=== PATIENT | male | born 1965 | race Caucasian/White ===

== ENCOUNTER 2016-11-11 07:34 | Outpatient (CLI) | payer BC ==
[2016-11-11 11:10] LABS: BASOPHILS % (AUTO) 0.2 %; EOSINOPHILS # (AUTO) 0.1 10^3/uL (0.0-0.7); EOSINOPHILS % (AUTO) 2.3 %; HCT - HEMATOCRIT 46.1 % (42.0-52.0); HGB - HEMOGLOBIN 16.2 g/dL (14.0-18.0); LYMPHOCYTES # (AUTO) 1.9 10^3/uL (1.5-3.5); LYMPHOCYTES % (AUTO) 35.8 %; MEAN CORPUSCULAR HEMOGLOBIN 28.7 pg (27.0-31.0); MEAN CORPUSCULAR VOLUME 81.8 fL (80.0-94.0); MEAN PLATELET VOLUME 8.4 fL (7.4-11.4); MONOCYTES # (AUTO) 0.5 10^3/uL (0.0-1.0); MONOCYTES % (AUTO) 9.4 %; NEUTROPHILS # (AUTO) 2.8 10^3/uL (1.5-6.6); NEUTROPHILS % (AUTO) 52.3 %; NUCLEATED RED BLOOD CELLS AUTO 0.1 /100WBC; RED BLOOD COUNT 5.64 10^6/uL (4.70-6.10); RED CELL DISTRIBUTION WIDTH 13.9 % (12.0-15.0); UNCORRECTED WHITE BLOOD COUNT 5.3 x10^3/uL; WHITE BLOOD COUNT 5.3 x10^3/uL (4.8-10.8)
[2016-11-11 11:25] LABS: ALBUMIN/GLOBULIN RATIO 1.5 (1.0-2.2); BILIRUBIN,TOTAL 0.8 mg/dL (0.2-1.0); BUN - BLOOD UREA NITROGEN 18 mg/dL (6-20); CALCIUM 9.5 mg/dL (8.5-10.3); CARBON DIOXIDE - CO2 25 mmol/L (21-32); CHLORIDE 108 mmol/L (101-111); CHOL/HDL RATIO 6.3 (<5.0); CHOLESTEROL 207 mg/dL; CREATININE 0.9 mg/dL (0.6-1.2); GFR - MDRD 90 (>89); GLUCOSE 99 mg/dL (70-100); HDL CHOLESTEROL 33 mg/dL; LDL/HDL RATIO 4.2 (<3.6); POTASSIUM 4.5 mmol/L (3.5-5.0); SODIUM 140 mmol/L (135-145); TOTAL PROTEIN 7.7 g/dL (6.7-8.2); TRIGLYCERIDES 186 mg/dL; VLDL CHOLESTEROL 37 mg/dL
== END 2016-11-11 07:35 | disposition home or self-care (01) ==
LOC: LAB.F 07:34
PROVIDERS: ATTEND Nurse Practitioner Family
DX: I10 Essential (primary) hypertension (principal); E78.5 Hyperlipidemia, unspecified
CPT/HCPCS: 36415; 80053; 80061; 84443; 85025

== ENCOUNTER 2018-02-17 08:29 | Outpatient (CLI) | payer BC ==
[2018-02-17 11:05] LABS: BASOPHILS % (AUTO) 0.3 %; EOSINOPHILS # (AUTO) 0.1 10^3/uL (0.0-0.7); EOSINOPHILS % (AUTO) 2.1 %; HGB - HEMOGLOBIN 16.2 g/dL (14.0-18.0); LYMPHOCYTES # (AUTO) 1.7 10^3/uL (1.5-3.5); LYMPHOCYTES % (AUTO) 34.5 %; MEAN CORPUSCULAR HEMOGLOBIN 29.1 pg (27.0-31.0); MEAN CORPUSCULAR HGB CONC 34.5 g/dL (32.0-36.0); MEAN CORPUSCULAR VOLUME 84.2 fL (80.0-94.0); MEAN PLATELET VOLUME 8.1 fL (7.4-11.4); MONOCYTES # (AUTO) 0.5 10^3/uL (0.0-1.0); NEUTROPHILS # (AUTO) 2.7 10^3/uL (1.5-6.6); NEUTROPHILS % (AUTO) 53.1 %; PLT - PLATELET COUNT 173 10^3/uL (130-450); RED BLOOD COUNT 5.58 10^6/uL (4.70-6.10); RED CELL DISTRIBUTION WIDTH 13.9 % (12.0-15.0)
[2018-02-17 11:27] LABS: ALBUMIN 4.6 g/dL (3.2-5.5); ALBUMIN/GLOBULIN RATIO 1.5 (1.0-2.2); ALKALINE PHOSPHATASE 57 IU/L (42-121); ALT ALANINE AMINOTRANSFERASE 48 IU/L (10-60); AST ASPARTATE AMINOTRANSFERASE 35 IU/L (10-42); BILIRUBIN,TOTAL 1.1 mg/dL (0.2-1.0); BUN - BLOOD UREA NITROGEN 18 mg/dL (6-20); CALCIUM 9.4 mg/dL (8.5-10.3); CARBON DIOXIDE - CO2 26 mmol/L (21-32); CHLORIDE 107 mmol/L (101-111); CHOL/HDL RATIO 4.8 (<5.0); CHOLESTEROL 187 mg/dL; GFR - MDRD 79 (>89); GLUCOSE 98 mg/dL (70-100); HDL CHOLESTEROL 39 mg/dL; LDL CHOLESTEROL,CALCULATED 120 mg/dL; LDL/HDL RATIO 3.1 (<3.6); SODIUM 139 mmol/L (135-145); TOTAL PROTEIN 7.7 g/dL (6.7-8.2); VLDL CHOLESTEROL 28 mg/dL
== END 2018-02-17 08:30 | disposition home or self-care (01) ==
LOC: LAB.F 08:29
PROVIDERS: ATTEND Nurse Practitioner Family
DX: I10 Essential (primary) hypertension (principal); E78.5 Hyperlipidemia, unspecified
CPT/HCPCS: 36415; 80053; 80061; 83721; 84443; 85025

== ENCOUNTER 2018-09-09 10:50 | Outpatient (CLI) | payer SELFPAY | END 2018-09-09 10:51 | disposition home or self-care (01) | LOC: LAB 10:50 | PROVIDERS: ATTEND Nurse Practitioner Family | DX: Z02.9 Encounter for administrative examinations, unspecified (principal) | CPT/HCPCS: 36415 ==

== ENCOUNTER 2019-02-06 07:04 | Outpatient (CLI) | payer BC ==
--- NOTE | 2019-02-06 09:07 | Ultrasound Report ---
Reason: LIVER FUNCTION TESTS ABNORMAL Procedure Date: 02/06/2019 Accession Number: [id number] / [id number] Procedure: US - Abdomen Limited CPT Code: FULL RESULT: EXAM: ABDOMEN ULTRASOUND LIMITED, RUQ EXAM DATE: 02/06/2019 07:55 AM. CLINICAL HISTORY: LIVER FUNCTION TESTS ABNORMAL. COMPARISON: None. TECHNIQUE: Real-time scanning was performed with static images obtained. FINDINGS: Liver: Echogenic hepatic parenchyma. No hepatic lesions. No intrahepatic ductal dilatation. Liver is not enlarged, 15 cm. Main portal vein flow: Hepatopetal. Gallbladder: Multiple stones completely occupy the entire gallbladder. No sonographic Manzano's sign. Gallbladder wall appears thickened. Biliary System: CBD measures 6-7 mm. No intrahepatic or extrahepatic ductal dilatation. Other: Right kidney is lobular in contour and normal in echotexture and measures 11.6 cm. No hydronephrosis. IMPRESSION: 1. Hepatic steatosis. 2. Cholelithiasis. Gallbladder wall thickening. No sonographic Manzano's sign. 3. No biliary ductal dilatation. RADIA
== END 2019-02-06 07:05 | disposition home or self-care (01) ==
LOC: DI 07:04
PROVIDERS: ATTEND Internal Medicine
DX: K76.0 Fatty (change of) liver, not elsewhere classified (principal); K80.20 Calculus of gallbladder without cholecystitis without obstruction
CPT/HCPCS: 76705

== ENCOUNTER 2019-11-29 07:41 | Outpatient (CLI) | payer BC ==
[2019-11-29 15:24] LABS: BASOPHILS % (AUTO) 0.2 %; EOSINOPHILS # (AUTO) 0.1 10^3/uL (0.0-0.7); EOSINOPHILS % (AUTO) 1.8 %; HGB - HEMOGLOBIN 16.5 g/dL (14.0-18.0); LYMPHOCYTES # (AUTO) 1.7 10^3/uL (1.5-3.5); LYMPHOCYTES % (AUTO) 34.8 %; MEAN CORPUSCULAR HEMOGLOBIN 28.5 pg (27.0-31.0); MEAN CORPUSCULAR HGB CONC 33.6 g/dL (32.0-36.0); MEAN CORPUSCULAR VOLUME 84.9 fL (80.0-94.0); MEAN PLATELET VOLUME 10.1 fL (7.4-11.4); MONOCYTES # (AUTO) 0.4 10^3/uL (0.0-1.0); MONOCYTES % (AUTO) 8.4 %; NEUTROPHILS # (AUTO) 2.7 10^3/uL (1.5-6.6); NEUTROPHILS % (AUTO) 54.6 %; PLT - PLATELET COUNT 185 10^3/uL (130-450); RED BLOOD COUNT 5.78 10^6/uL (4.70-6.10); WHITE BLOOD COUNT 4.9 x10^3/uL (4.8-10.8)
[2019-11-29 15:32] LABS: ALBUMIN/GLOBULIN RATIO 1.1 (1.0-2.2); ALKALINE PHOSPHATASE 60 IU/L (42-121); ALT ALANINE AMINOTRANSFERASE 55 IU/L (10-60); AST ASPARTATE AMINOTRANSFERASE 40 IU/L (10-42); BILIRUBIN,TOTAL 0.9 mg/dL (0.2-1.0); BUN - BLOOD UREA NITROGEN 19 mg/dL (6-20); CALCIUM 9.1 mg/dL (8.5-10.3); CARBON DIOXIDE - CO2 26 mmol/L (21-32); CHLORIDE 102 mmol/L (101-111); CHOL/HDL RATIO 5.1 (<5.0); CHOLESTEROL 183 mg/dL; CREATININE 0.9 mg/dL (0.6-1.2); GLUCOSE 99 mg/dL (70-100); HDL CHOLESTEROL 36 mg/dL; LDL CHOLESTEROL,CALCULATED 94 mg/dL; LDL/HDL RATIO 2.6 (<3.6); SODIUM 135 mmol/L (135-145); TOTAL PROTEIN 7.7 g/dL (6.7-8.2); VLDL CHOLESTEROL 53 mg/dL
== END 2019-11-29 07:42 | disposition home or self-care (01) ==
LOC: LAB.S 07:41
PROVIDERS: ATTEND Nurse Practitioner Family
DX: Z00.00 Encounter for general adult medical examination without abnormal findings (principal); E55.9 Vitamin D deficiency, unspecified; E78.5 Hyperlipidemia, unspecified
CPT/HCPCS: 36415; 80053; 80061; 82306; 82728; 83721; 84153; 85025

== ENCOUNTER 2020-01-03 13:06 | Outpatient (CLI) | payer BC | END 2020-01-03 13:07 | disposition home or self-care (01) | LOC: LAB 13:06 | PROVIDERS: ATTEND Nurse Practitioner Family | DX: B34.9 Viral infection, unspecified (principal); Z20.828 Contact with and (suspected) exposure to other viral communicable diseases | CPT/HCPCS: 81599 ==

== ENCOUNTER 2020-01-09 10:33 | Outpatient (CLI) | payer BC ==
--- NOTE | 2020-01-09 12:39 | XRAY Report ---
PROCEDURE: Chest 2 View X-Ray INDICATIONS: ONGOING LOW GRADE TEMP, COUGH, SOB TECHNIQUE: 2 view(s) of the chest. COMPARISON: 08/01/2015. FINDINGS: Surgical changes and devices: None. Lungs and pleura: No pleural effusions or pneumothorax. Mildly increased bronchovascular markings in bilateral hilar region are seen more prominent on the right side. No definite focal infiltrate. Mediastinum: Mediastinal contours are normal. Heart size is normal. Bones and chest wall: No suspicious bony abnormalities. Soft tissues appear unremarkable. IMPRESSION: Findings suggestive of mild reactive airway disease. No definite focal infiltrate. Reviewed by: Rod Carlin MD on 01/09/2020 12:37 PM PDT Approved by: Rod Carlin MD on 01/09/2020 12:37 PM PDT Station ID: [id number]
[2020-01-09 15:36] LABS: BASOPHILS % (AUTO) 0.3 %; EOSINOPHILS % (AUTO) 0.6 %; HGB - HEMOGLOBIN 15.5 g/dL (14.0-18.0); LYMPHOCYTES % (AUTO) 31.4 %; MEAN CORPUSCULAR HEMOGLOBIN 28.9 pg (27.0-31.0); MEAN CORPUSCULAR HGB CONC 33.7 g/dL (32.0-36.0); MEAN CORPUSCULAR VOLUME 85.7 fL (80.0-94.0); MEAN PLATELET VOLUME 10.5 fL (7.4-11.4); MONOCYTES # (AUTO) 0.4 10^3/uL (0.0-1.0); MONOCYTES % (AUTO) 12.9 %; NEUTROPHILS # (AUTO) 1.7 10^3/uL (1.5-6.6); NEUTROPHILS % (AUTO) 54.5 %; PLT - PLATELET COUNT 158 10^3/uL (130-450); RED BLOOD COUNT 5.37 10^6/uL (4.70-6.10); RED CELL DISTRIBUTION WIDTH 13.1 % (12.0-15.0); WHITE BLOOD COUNT 3.2 x10^3/uL (4.8-10.8)
[2020-01-09 15:45] LABS: GLUCOSE, URINE (UA) NEGATIVE (NEGATIVE); KETONES,URINE (UA) TRACE mg/dL (NEGATIVE); LEUKOCYTE ESTERASE, URINE NEGATIVE (NEGATIVE); NITRITE,URINE NEGATIVE (NEGATIVE); OCCULT BLOOD,URINE NEGATIVE (NEGATIVE); PH,URINE 5.5 PH (5.0-7.5); PROTEIN,URINE 30 mg/dL (NEGATIVE); UROBILINOGEN,URINE 0.2 (NORMAL) E.U./dL (NORMAL)
[2020-01-09 15:48] LABS: ALBUMIN 4.3 g/dL (3.2-5.5); ALBUMIN/GLOBULIN RATIO 1.1 (1.0-2.2); BILIRUBIN,TOTAL 0.8 mg/dL (0.2-1.0); CALCIUM 9.1 mg/dL (8.5-10.3); TOTAL PROTEIN 8.1 g/dL (6.7-8.2)
[2020-01-09 16:26] LABS: BILIRUBIN,URINE NEGATIVE (NEGATIVE); CLARITY,URINE CLEAR (CLEAR); ICTOTEST,URINE NEGATIVE
[2020-01-09 16:27] LABS: BACTERIA,URINE None Seen /HPF (None Seen); CASTS, URINE 6-10 Hyaline Casts /LPF; CRYSTALS,URINE 6-10 Calcium Oxalate /LPF; RBC,URINE None Seen /HPF (0-5); SQUAMOUS EPITHELIAL CELL,UR NONE SEEN (<= Few)
== END 2020-01-09 10:34 | disposition home or self-care (01) ==
LOC: DI.S 10:33
PROVIDERS: ATTEND Nurse Practitioner Family
DX: R05 Cough (principal); R50.9 Fever, unspecified; R30.0 Dysuria
CPT/HCPCS: 36415; 71046; 80053; 81001; 85025; 87086

== ENCOUNTER 2020-01-11 15:00 | Outpatient (CLI) | payer BC | END 2020-01-11 15:01 | disposition home or self-care (01) | LOC: LAB.S 15:00 | PROVIDERS: ATTEND Nurse Practitioner Family | DX: R50.9 Fever, unspecified (principal); R05 Cough; R53.83 Other fatigue; Z20.828 Contact with and (suspected) exposure to other viral communicable diseases | CPT/HCPCS: 36415; 81599; 86644; 86645; 86769 ==

== ENCOUNTER 2020-01-22 11:16 | Emergency (ER) | payer BC ==
[2020-01-22 12:15] LABS: BASOPHILS % (AUTO) 0.2 %; EOSINOPHILS % (AUTO) 0.5 %; HGB - HEMOGLOBIN 16.3 g/dL (14.0-18.0); LYMPHOCYTES % (AUTO) 24.9 %; MEAN CORPUSCULAR HEMOGLOBIN 29.3 pg (27.0-31.0); MEAN CORPUSCULAR HGB CONC 34.3 g/dL (32.0-36.0); MEAN CORPUSCULAR VOLUME 85.4 fL (80.0-94.0); MEAN PLATELET VOLUME 8.4 fL (7.4-11.4); MONOCYTES # (AUTO) 0.5 10^3/uL (0.0-1.0); MONOCYTES % (AUTO) 12.8 %; NEUTROPHILS # (AUTO) 2.5 10^3/uL (1.5-6.6); NEUTROPHILS % (AUTO) 61.4 %; PLT - PLATELET COUNT 224 10^3/uL (130-450); RED BLOOD COUNT 5.56 10^6/uL (4.70-6.10); RED CELL DISTRIBUTION WIDTH 13.1 % (12.0-15.0); WHITE BLOOD COUNT 4.1 x10^3/uL (4.8-10.8)
--- NOTE | 2020-01-22 12:34 | ED Physician Documentation ---
History of Present Illness - Stated complaint Stated Complaint: FEVER X 3WKS/SENT BY - Chief complaint Chief Complaint: Fever - History obtained from History obtained from: Patient - Additonal information Additional information: Previously healthy 54-year-old gentleman presents with 3 weeks of fevers. It started on the seventh of this month, he started running fevers at night. It was associated with a minimally productive cough and some wheezing. He saw his physician, in the interim he has had a negative chest x-ray, negative urine. And basically normal blood work with mild lymphopenia and mild transaminitis. He denies headache, sore throat or dental issues. He does have a little bit of sinus congestion and runny nose. No abdominal pain, but he is always had some abdominal issues, and was diagnosed with gallstones last year. No more diarrhea than normal, he does have chronic diarrhea which he relates to the gallstones. No rashes. No joint pain except that he fell off his riding mower 3 days ago and injured his right upper ribs anteriorly and clavicle area. He is also had 2- COVID tests during this timeframe. Review of Systems Constitutional: reports: Fever, Chills, Fatigue Nose: reports: Rhinorrhea / runny nose Throat: denies: Sore throat Cardiac: denies: Chest pain / pressure, Palpitations Respiratory: reports: Dyspnea, Cough, Wheezing GI: reports: Diarrhea (Chronic). denies: Abdominal Pain, Nausea, Vomiting : denies: Dysuria, Frequency Musculoskeletal: denies: Neck pain, Back pain Neurologic: denies: Headache PD PAST MEDICAL HISTORY - Present Medications Home Medications: Ambulatory Orders Medication Instructions Recorded Confirmed Albuterol Sulf [Ventolin Hfa 1 - 2 puffs INH Q4HR PRN #1 inhaler 01/22/20 Inhaler] Azithromycin [Zithromax] 2 tab PO DAILY #14 tablet 01/22/20 - Allergies Allergies/Adverse Reactions: Allergies Allergy/AdvReac Type Severity Reaction Status Date / Time No Known Drug Allergies Allergy Verified 01/22/20 11:22 PD ED PE NORMAL - Vitals Vital signs reviewed: Yes - General General: Alert and oriented X 3, No acute distress - HEENT HEENT: PERRL, EOMI - Neck Neck: Supple, no meningeal sign, No bony TTP, No adenopathy, Other (Tender to the right medial clavicle without deformity.) - Cardiac Cardiac: RRR, No murmur - Respiratory Respiratory: No respiratory distress, Clear bilaterally - Abdomen Abdomen: Non tender - Derm Derm: No rash - Neuro Neuro: Alert and oriented X 3, Normal speech Results - Vitals Vitals: Vital Signs - 24 hr 01/22/20 01/22/20 01/22/20 11:22 12:39 14:00 Temperature 36.7 C 36.6 C Heart Rate 94 102 H 98 Respiratory 18 20 16 Rate Blood Pressure 128/88 H 115/80 115/80 O2 Saturation 98 100 100 Oxygen O2 Source Room air - Labs Labs: Laboratory Tests 01/22/20 01/22/20 01/22/20 11:45 11:50 11:50 WBC 4.1 L RBC 5.56 Hgb 16.3 Hct 47.5 MCV 85.4 MCH 29.3 MCHC 34.3 RDW 13.1 Plt Count 224 MPV 8.4 Neut # (Auto) 2.5 Lymph # (Auto) 1.0 L [place] # (Auto) 0.5 Eos # (Auto) 0.0 Baso # (Auto) 0.0 Absolute Nucleated RBC 0.00 Nucleated RBC % 0.0 ESR 13 Sodium Potassium Chloride Carbon Dioxide Anion Gap BUN Creatinine Estimated GFR (MDRD) Glucose Lactic Acid Calcium Total Bilirubin AST ALT Alkaline Phosphatase C-Reactive Protein Total Protein Albumin Globulin Albumin/Globulin Ratio Lipase Urine Color YELLOW Urine Clarity CLEAR Urine pH 5.5 Ur Specific [place] 1.015 Urine Protein NEGATIVE Urine Glucose (UA) NEGATIVE Urine Ketones NEGATIVE Urine Occult Blood NEGATIVE Urine Nitrite NEGATIVE Urine Bilirubin NEGATIVE Urine Urobilinogen 0.2 (NORMAL) Ur Leukocyte Esterase NEGATIVE Ur Microscopic Review NOT INDICATED Urine Culture Comments NOT INDICATED 01/22/20 01/22/20 11:50 11:50 WBC RBC Hgb Hct MCV MCH MCHC RDW Plt Count MPV Neut # (Auto) Lymph # (Auto) [place] # (Auto) Eos # (Auto) Baso # (Auto) Absolute Nucleated RBC Nucleated RBC % ESR Sodium 134 L Potassium 3.8 Chloride 96 L Carbon Dioxide 25 Anion Gap 13.0 BUN 13 Creatinine 1.0 Estimated GFR (MDRD) 78 L Glucose 114 H Lactic Acid 1.6 Calcium 9.7 Total Bilirubin 1.1 H AST 46 H ALT 62 H Alkaline Phosphatase 73 C-Reactive Protein 1.1 H Total Protein 8.8 H Albumin 4.8 Globulin 4.0 Albumin/Globulin Ratio 1.2 Lipase 52 H Urine Color Urine Clarity Urine pH Ur Specific [place] Urine Protein Urine Glucose (UA) Urine Ketones Urine Occult Blood Urine Nitrite Urine Bilirubin Urine Urobilinogen Ur Leukocyte Esterase Ur Microscopic Review Urine Culture Comments PD MEDICAL DECISION MAKING - ED course ED course: 54-year-old gentleman with fever of unknown origin, remainder of standard work- up done here without pertinent positive findings Except for continued mild transaminitis and atelectasis in the left lung. Also gallstones but that does not seem to be an active issue. Departure - Departure Disposition: Home, Self Care Clinical Impression: FUO (fever of unknown origin), Atelectasis of left lung, Transaminitis Condition: Good Record reviewed to determine appropriate education?: Yes Instructions: ED Fever Unconf Cause Prescriptions: Albuterol Sulf [Ventolin Hfa Inhaler] 1 - 2 puffs INH Q4HR PRN #1 inhaler PRN Reason: Shortness Of Air/Wheezing Azithromycin [Zithromax] 2 tab PO DAILY #14 tablet Comments: You were seen today for fever of unknown origin. Your white blood cell count was 4.1 with a slight lymphopenia. Inflammatory markers were not elevated. You have very mild elevation in liver enzymes. Urine was normal. CT of the chest abdomen and pelvis was notable only for gallstones which you already knew about and atelectasis of the left lung which could be causative. Per your doctor's recommendation we are putting you on a longer course of antibiotics. Still pending are blood cultures, and a hepatitis test. Return if worsening. Follow- up with your doctor regardless. Discharge Date/Time: 01/22/20 14:16
[2020-01-22 12:37] LABS: BILIRUBIN,URINE NEGATIVE (NEGATIVE); GLUCOSE, URINE (UA) NEGATIVE (NEGATIVE); KETONES,URINE (UA) NEGATIVE (NEGATIVE); LEUKOCYTE ESTERASE, URINE NEGATIVE (NEGATIVE); NITRITE,URINE NEGATIVE (NEGATIVE); OCCULT BLOOD,URINE NEGATIVE (NEGATIVE); PH,URINE 5.5 PH (5.0-7.5); PROTEIN,URINE NEGATIVE (NEGATIVE); UROBILINOGEN,URINE 0.2 (NORMAL) E.U./dL (NORMAL)
[2020-01-22 12:37] LABS: ALBUMIN 4.8 g/dL (3.2-5.5); ALBUMIN/GLOBULIN RATIO 1.2 (1.0-2.2); BILIRUBIN,TOTAL 1.1 mg/dL (0.2-1.0); CALCIUM 9.7 mg/dL (8.5-10.3); CRP - C-REACTIVE PROTEIN 1.1 mg/dL (0-1.0); TOTAL PROTEIN 8.8 g/dL (6.7-8.2)
[2020-01-22 12:39] LABS: CLARITY,URINE CLEAR (CLEAR)
[2020-01-22 12:40] VITALS: BP 115/80
[2020-01-22] MEDS ORDERED: IOVERSOL 320 100 ML VIAL IVP ONE ×2 (12:45→13:11)
--- NOTE | 2020-01-22 13:21 | CT Report ---
PROCEDURE: Abdomen/Pelvis W INDICATIONS: IV only, FUO CONTRAST: IV CONTRAST: Optiray 320 ml: 100 PO CONTRAST: *NO PO CONTRAST TECHNIQUE: After the administration of oral and intravenous contrast, 5 mm thick sections acquired from the diap hragms to the symphysis. 5 mm thick coronal and sagittal reformats were acquired. For radiation dos e reduction, the following was used: automated exposure control, adjustment of mA and/or kV accordin g to patient size. COMPARISON: 02/06/2019. FINDINGS: Image quality: Excellent. ABDOMEN: Lung bases: Lung bases are clear. Heart size is normal. Solid organs: Liver and spleen are normal in size and enhancement. Gallbladder contains 2 foci of a ir which likely represent air-containing gallstones, as seen on prior abdominal ultrasound. Biliary s ystem is non dilated. Pancreas enhances normally. No adrenal nodules. Kidneys demonstrate normal s ize and enhancement, without hydronephrosis. Peritoneum and bowel: Bowel loops demonstrate normal wall thickness and caliber. No free fluid or a ir. Nodes and vessels: No retroperitoneal or mesenteric adenopathy by size criteria. Aorta and inferior vena cava are normal in size. Miscellaneous: No ventral hernias. PELVIS: Genitourinary: Bladder wall thickness is normal. Miscellaneous: No inguinal hernias or adenopathy. Bones: No suspicious bony lesions. No vertebral body compression fractures. IMPRESSION: No acute finding to explain fever of unknown origin in the abdomen or pelvis. Cholelith iasis again noted. Reviewed by: Pastor Lopez MD on 01/22/2020 1:20 PM PDT Approved by: Pastor Lopez MD on 01/22/2020 1:20 PM PDT Station ID: [id number]
--- NOTE | 2020-01-22 13:57 | CT Report ---
PROCEDURE: CHEST W INDICATIONS: FUO CONTRAST: IV CONTRAST: Optiray 320 ml: 100 PO CONTRAST: *NO PO CONTRAST TECHNIQUE: After the administration of intravenous contrast, 5 mm thick sections acquired from the pulmonary api maryam to the posterior costophrenic angles. 7 mm thick coronal MIP reformats were acquired. For radia tion dose reduction, the following was used: automated exposure control, adjustment of mA and/or kV according to patient size. COMPARISON: None. FINDINGS: Image quality: Excellent. Lungs and pleura: Streaky discoid atelectasis in the superior segment left lower lobe. No other acute air space opacity. No pleural effusions or pneumothorax. Central and peripheral airways are patent and normal in caliber. Mediastinum: Heart size is normal. No pericardial effusion. No mediastinal or hilar adenopathy by size criteria. Thoracic aorta and central pulmonary arteries are normal in size. Esophagus is hien l in caliber. No hiatal hernia. Bones and chest wall: No suspicious bony lesions. No vertebral body compression fractures. No axil helen or supraclavicular adenopathy by size criteria. Thyroid gland uniform and normal in size. IMPRESSION: Subsegmental atelectasis in the superior segment left lower lobe. This is a potential source of fever . There is no acute infectious consolidation or lymphadenopathy in the chest. Reviewed by: Pastor Lopez MD on 01/22/2020 1:55 PM PDT Approved by: Pastor Lopez MD on 01/22/2020 1:55 PM PDT Station ID: [id number]
[2020-01-23 10:44] LABS: HEPATITIS A IGM NON-REACTIVE (NON-REACTIVE); HEPATITIS B SURFACE ANTIGEN NON-REACTIVE (NON-REACTIVE); HEPATITIS C ANTIBODY NON-REACTIVE (NON-REACTIVE)
== END 2020-01-22 14:16 | disposition home or self-care (01) ==
LOC: ED 11:16
DX: R50.9 Fever, unspecified (principal); J98.11 Atelectasis; R74.0 Nonspecific elevation of levels of transaminase and lactic acid dehydrogenase [LDH]; D72.810 Lymphocytopenia; K80.20 Calculus of gallbladder without cholecystitis without obstruction
CPT/HCPCS: 36415; 71260; 74177; 80053; 80074; 81003; 83605; 83690; 85025; 85651; 86140; 87040; 99284; Q9967; 81001; 87086

== ENCOUNTER 2021-01-16 07:39 | Outpatient (CLI) | payer BC ==
[2021-01-16 14:42] LABS: BASOPHILS % (AUTO) 0.4 %; EOSINOPHILS # (AUTO) 0.1 10^3/uL (0.0-0.7); EOSINOPHILS % (AUTO) 2.6 %; HGB - HEMOGLOBIN 16.5 g/dL (14.0-18.0); LYMPHOCYTES # (AUTO) 1.6 10^3/uL (1.5-3.5); LYMPHOCYTES % (AUTO) 35.4 %; MEAN CORPUSCULAR HEMOGLOBIN 28.6 pg (27.0-31.0); MEAN CORPUSCULAR VOLUME 86.8 fL (80.0-94.0); MEAN PLATELET VOLUME 10.2 fL (7.4-11.4); MONOCYTES # (AUTO) 0.4 10^3/uL (0.0-1.0); MONOCYTES % (AUTO) 9.2 %; NEUTROPHILS # (AUTO) 2.4 10^3/uL (1.5-6.6); NEUTROPHILS % (AUTO) 52.2 %; PLT - PLATELET COUNT 183 10^3/uL (130-450); RED BLOOD COUNT 5.76 10^6/uL (4.70-6.10); RED CELL DISTRIBUTION WIDTH 13.2 % (12.0-15.0); WHITE BLOOD COUNT 4.6 x10^3/uL (4.8-10.8)
[2021-01-16 15:08] LABS: ALBUMIN 4.7 g/dL (3.2-5.5); ALBUMIN/GLOBULIN RATIO 1.5 (1.0-2.2); ALKALINE PHOSPHATASE 53 IU/L (42-121); ALT ALANINE AMINOTRANSFERASE 52 IU/L (10-60); AST ASPARTATE AMINOTRANSFERASE 39 IU/L (10-42); BILIRUBIN,TOTAL 1.1 mg/dL (0.2-1.0); BUN - BLOOD UREA NITROGEN 16 mg/dL (6-20); CALCIUM 9.2 mg/dL (8.5-10.3); CARBON DIOXIDE - CO2 25 mmol/L (21-32); CHLORIDE 104 mmol/L (101-111); CHOL/HDL RATIO 5.8 (<5.0); CHOLESTEROL 220 mg/dL; CREATININE 0.9 mg/dL (0.6-1.2); GFR - MDRD 88 (>89); GLUCOSE 99 mg/dL (70-100); HDL CHOLESTEROL 38 mg/dL; LDL CHOLESTEROL,CALCULATED 138 mg/dL; LDL/HDL RATIO 3.6 (<3.6); POTASSIUM 4.4 mmol/L (3.5-5.0); SODIUM 139 mmol/L (135-145); TOTAL PROTEIN 7.8 g/dL (6.7-8.2); TRIGLYCERIDES 220 mg/dL; VLDL CHOLESTEROL 44 mg/dL
[2021-01-16 15:15] LABS: PSA TOTAL 0.74 ng/mL (0.000-2.000)
[2021-01-16 15:20] LABS: THYROID STIMULATING HORMONE 2.94 uIU/mL (0.34-5.60)
== END 2021-01-16 07:40 | disposition home or self-care (01) ==
LOC: LAB.S 07:39
PROVIDERS: ATTEND Nurse Practitioner Family
DX: Z12.5 Encounter for screening for malignant neoplasm of prostate (principal); E78.5 Hyperlipidemia, unspecified; I10 Essential (primary) hypertension
CPT/HCPCS: 36415; 80053; 80061; 83721; 84153; 84443; 85025

== ENCOUNTER 2021-04-25 15:31 | Outpatient (CLI) | payer BC ==
--- NOTE | 2021-04-25 19:17 | XRAY Report ---
PROCEDURE: Chest 2 View X-Ray INDICATIONS: DYSPNEA TECHNIQUE: 2 view(s) of the chest. COMPARISON: None. FINDINGS: Surgical changes and devices: None. Lungs and pleura: No pleural effusions or pneumothorax. Lungs are clear. Mediastinum: Mediastinal contours are normal. Heart size is normal. Bones and chest wall: No suspicious bony abnormalities. Soft tissues appear unremarkable. IMPRESSION: No acute cardiopulmonary findings Reviewed by: Adiel Khan MD on 04/25/2021 6:16 PM AKDT Approved by: Adiel Khan MD on 04/25/2021 6:16 PM AKDT Station ID: [id number]
== END 2021-04-25 15:32 | disposition home or self-care (01) ==
LOC: DI.S 15:31
PROVIDERS: ATTEND Physician Assistant
DX: R06.00 Dyspnea, unspecified (principal)

== ENCOUNTER 2021-06-19 09:17 | Outpatient (CLI) | payer BC | END 2021-06-19 09:18 | disposition home or self-care (01) | LOC: RT 09:17 | PROVIDERS: ATTEND Nurse Practitioner Family | DX: R06.00 Dyspnea, unspecified (principal) | CPT/HCPCS: 94010 ==